=== PATIENT | female | born 1990 ===

== ENCOUNTER 2019-04-24 09:21 | Inpatient (IN) | payer OTHER ==
[~2019-04-24] VITALS: Ht 175.3 cm; Wt 63.5 kg
== END 2019-04-28 11:19 | disposition home or self-care (01) | DRG 743 ==
LOC: O/R 04-26 06:00 → OB/GYN 04-26 06:00 → O/R 04-26 15:15 → OB/GYN 04-26 16:44 → O/R 04-26 18:30 → OB/GYN 04-28 11:19
PROVIDERS: ADMIT Obstetrics & Gynecology Gynecologic Oncology
PROC: 0UT54ZZ Resection of Right Fallopian Tube, Percutaneous Endoscopic Approach (ICD-10-PCS; 2019-04-26)
PROC: 0UT04ZZ Resection of Right Ovary, Percutaneous Endoscopic Approach (ICD-10-PCS; 2019-04-26)
PROC: 0UT94ZZ Resection of Uterus, Percutaneous Endoscopic Approach (ICD-10-PCS; principal; 2019-04-26 18:30)
DX: D25.2 Subserosal leiomyoma of uterus (principal); N83.11 Corpus luteum cyst of right ovary; N72 Inflammatory disease of cervix uteri; N80.2 Endometriosis of fallopian tube